=== PATIENT | male | born 1940 ===

== ENCOUNTER 2021-11-25 12:07 | Inpatient (IN) | payer OTHER ==
[~2021-11-25] VITALS: Ht 162.6 cm; Wt 83.9 kg
--- NOTE | 2021-11-25 12:26 | NUR ---
SE RECIBE PTE ALERTA Y ORIENTADO X3,ACOMPNADO POR FAMILIAR LA CUAL REFIERE QUE EL DR.LOPEZ NELSON REFIERE AL PTE PARA ADMISION ,PTE TIENE DEDOS TEECRO Y CUARTO PIE DERECHO PARA AMPUTACION.
[2021-11-25] MEDS ORDERED: LASIX40 MG PO (12:28)
[2021-11-25] MEDS ORDERED: HUMULIN 70100 UNIT/2 SQ (12:28)
[2021-11-25] MEDS ORDERED: GABAPENTIN400 MG PO (12:29)
[2021-11-25] MEDS ORDERED: CILOSTAZOL100 MG PO (12:29)
--- NOTE | 2021-11-25 13:08 | NUR ---
SE LE ORIENTA A PACIENTE SOBRE LAS ORDENES MEDICAS, REFIERE ENTEDER LAS MISMAS. SE CANALIZA Y SE LE COLOCA LOS IVF'S, SE LE YURIDIA LAS MUETRAS DE EDU Y SE LE ADMINISTRAN LOS MEDICAMENTOS JUAN LAS ORDENES MEDICAS. SE NOTIFICA DOPPLER Y DUPLEX.
--- NOTE | 2021-11-25 15:24 | NUR ---
SE RECIBE PTE DEL TURNO ANTERIOR, ALERTA Y ORIENTADO EN ANA GABE ESFERAS, UBICADO EN ROBYN NIVEL MAS BAJO, FARRIS DE IDENTIFICACION Y BARANDAS ELEVADAS POR PRECAUCION. SE OBSERVA CON BUEN PATRON RESPIRATORIO. PIEL TIBIA AL TACTO. IV PATENTE Y PINKY DE EDEMA O ERITEMA RECIBIENDO 0.9% NSS @100ML/HR. PENDIENTE CONSULTA CON DR PAUL Y REALIZAR DUPPLER Y DOPPLER, NOTIFICADO A PERSONAL DE TURNO.
== END 2021-12-09 17:59 | disposition home or self-care (01) | DRG 256 ==
LOC: ER 12:07 → MEDJ 16:06
PROVIDERS: Specialist; ADMIT Internal Medicine; ATTEND Internal Medicine
PROC: B44HZZ3 Ultrasonography of Bilateral Lower Extremity Arteries, Intravascular (ICD-10-PCS; 2021-11-25)
PROC: B54DZZ3 Ultrasonography of Bilateral Lower Extremity Veins, Intravascular (ICD-10-PCS; 2021-11-25)
PROC: B41DYZZ Fluoroscopy of Aorta and Bilateral Lower Extremity Arteries using Other Contrast (ICD-10-PCS; 2021-11-28)
PROC: 0Y6V0Z0 Detachment at Right 4th Toe, Complete, Open Approach (ICD-10-PCS; principal; 2021-12-03 14:00)
DX: E11.52 Type 2 diabetes mellitus with diabetic peripheral angiopathy with gangrene (principal); I96 Gangrene, not elsewhere classified; N17.9 Acute kidney failure, unspecified; N39.0 Urinary tract infection, site not specified; L97.513 Non-pressure chronic ulcer of other part of right foot with necrosis of muscle; E11.621 Type 2 diabetes mellitus with foot ulcer; E11.628 Type 2 diabetes mellitus with other skin complications; E11.65 Type 2 diabetes mellitus with hyperglycemia; E11.22 Type 2 diabetes mellitus with diabetic chronic kidney disease; I11.9 Hypertensive heart disease without heart failure; I25.10 Atherosclerotic heart disease of native coronary artery without angina pectoris; L95.8 Other vasculitis limited to the skin; N28.9 Disorder of kidney and ureter, unspecified; Z79.4 Long term (current) use of insulin; Z95.1 Presence of aortocoronary bypass graft

== ENCOUNTER 2022-02-18 11:44 | Emergency (ER) | payer OTHER ==
[~2022-02-18] VITALS: Ht 162.6 cm; Wt 88.9 kg
[~2022-02-18 11:44] MED LIST: CILOSTAZOL100 MG PO; GABAPENTIN400 MG PO; HUMULIN 70100 UNIT/2 SQ; LASIX40 MG PO
== END 2022-02-18 15:38 | disposition home or self-care (01) ==
LOC: ER 11:44
DX: L29.9 Pruritus, unspecified (principal); R21 Rash and other nonspecific skin eruption